=== PATIENT | female | born 1965 | race American Indian/Alaskan Native ===

== ENCOUNTER 2019-10-17 12:30 | Inpatient (IN) | payer MEDICAID ==
[~2019-10-17] VITALS: Ht 165.1 cm; Wt 88.0 kg
[~2019-10-17 12:30] MED LIST: ACET-2247 PO; AUD NEB; BISA10SU11 PR; CHOL100018 PO; DOCU-275 PO; HEPA500018 SQ; LEVE500T53 PO; MOM30 PO; MULT-68 PO; OXYB5 PO; PHEN50 PO; TOPI100T37 PO; [UNRECOGNIZED DRUG - CODE] PO
[2019-10-17] MEDS ORDERED: HALOPERIDOL 5 MG TABLET PO PRN (13:30)
[2019-10-17 16:43] VITALS: BP 113/74
[2019-10-17] MEDS: LevETIRAcetam 500 MG TABLET PO SCH (17:24)
[2019-10-17] MEDS: TOPIRAMATE 100 MG TABLET PO SCH (17:24)
[2019-10-18] MEDS: LevETIRAcetam 500 MG TABLET PO SCH ×2 (09:11→16:42)
[2019-10-18] MEDS: TOPIRAMATE 100 MG TABLET PO SCH ×2 (09:11→16:41)
[2019-10-18] MEDS: CHOLECALCIFEROL (VIT D3) 1,000 UNITS TABLET PO SCH (09:11)
[2019-10-18] MEDS: MULTIVITAMINS, THERAPEUTIC TABLET PO SCH (09:11)
[2019-10-18 09:44] VITALS: BP 102/62
[2019-10-18] MEDS: ESCITALOPRAM OXALATE 10 MG TABLET PO SCH (10:46)
[2019-10-18] MEDS ORDERED: ONDANSETRON HCL 4 MG TABLET PO PRN (12:45)
[2019-10-18] MEDS ORDERED: PETROLATUM,WHITE 28 GM JELLY TP PRN (12:45)
[2019-10-18] MEDS ORDERED: LOPERAMIDE HCL 2 MG CAPSULE PO PRN (12:45)
[2019-10-18] MEDS ORDERED: DOCUSATE SODIUM 100 MG CAPSULE PO PRN (12:45)
[2019-10-18] MEDS ORDERED: GuaiFENesin/D-METHORPHAN [SUGAR-FREE] 200-20MG/10 ML SYRUP UDCUP PO PRN (12:45)
[2019-10-18] MEDS ORDERED: MAG HYDROX/AL HYDROX/SIMETH ES 30 ML SUSPENSION UDCUP PO PRN (12:45)
[2019-10-18] MEDS ORDERED: NICOTINE 14 MG/24 HOUR PATCH TD PRN (12:45)
[2019-10-18] MEDS ORDERED: MAGNESIUM HYDROXIDE SUSPENSION 30 ML UDCUP PO PRN (12:45)
[2019-10-18] MEDS ORDERED: CloNIDine HCL 0.1 MG TABLET PO PRN (12:45)
[2019-10-18] MEDS ORDERED: ACETAMINOPHEN 325 MG TABLET PO PRN (12:45)
[2019-10-18] MEDS ORDERED: ALBUTEROL SULFATE HFA 90 MCG/PUFF 8 GM INHALER IH PRN (12:45)
[2019-10-19] MEDS: CHOLECALCIFEROL (VIT D3) 1,000 UNITS TABLET PO SCH ×2 (09:00→10:10)
[2019-10-19] MEDS: ESCITALOPRAM OXALATE 10 MG TABLET PO SCH ×2 (09:00→10:11)
[2019-10-19] MEDS: MULTIVITAMINS, THERAPEUTIC TABLET PO SCH ×2 (09:00→10:10)
[2019-10-19] MEDS: TOPIRAMATE 100 MG TABLET PO SCH ×3 (09:00→17:20)
[2019-10-19] MEDS: LevETIRAcetam 500 MG TABLET PO SCH ×2 (10:15→17:20)
[2019-10-19] MEDS: LEVOFLOXACIN 500 MG TABLET PO SCH ×2 (17:45→20:20)
[2019-10-19 19:57] VITALS: BP 161/92
[2019-10-19 20:31] VITALS: BP 161/92
[2019-10-19] MEDS ORDERED: RisperiDONE 1 MG TABLET PO SCH (21:00)
[2019-10-19 23:13] VITALS: BP 120/78
[2019-10-19] MEDS: IBUPROFEN 400 MG TABLET PO PRN (23:17)
[2019-10-20 08:07] VITALS: BP 118/75
[2019-10-20] MEDS: ESCITALOPRAM OXALATE 10 MG TABLET PO SCH (09:52)
[2019-10-20] MEDS: MULTIVITAMINS, THERAPEUTIC TABLET PO SCH (09:52)
[2019-10-20] MEDS: TOPIRAMATE 100 MG TABLET PO SCH ×2 (09:52→16:50)
[2019-10-20] MEDS: CHOLECALCIFEROL (VIT D3) 1,000 UNITS TABLET PO SCH (09:52)
[2019-10-20] MEDS: LEVOFLOXACIN 500 MG TABLET PO SCH (09:52)
[2019-10-20] MEDS: LevETIRAcetam 500 MG TABLET PO SCH ×2 (09:53→16:51)
[2019-10-20] MEDS: IBUPROFEN 400 MG TABLET PO PRN (09:57)
[2019-10-20] MEDS ORDERED: LORazepam 2 MG/ML VIAL IM PRN (11:00)
[2019-10-20] MEDS: RisperiDONE 1 MG TABLET PO SCH ×2 (13:15→20:00)
[2019-10-20 16:11] VITALS: BP 109/79
[2019-10-21 01:09] VITALS: BP 135/81
[2019-10-21] MEDS: CHOLECALCIFEROL (VIT D3) 1,000 UNITS TABLET PO SCH (08:42)
[2019-10-21] MEDS: MULTIVITAMINS, THERAPEUTIC TABLET PO SCH (08:42)
[2019-10-21] MEDS: LevETIRAcetam 500 MG TABLET PO SCH ×2 (08:42→16:42)
[2019-10-21] MEDS: TOPIRAMATE 100 MG TABLET PO SCH ×2 (08:42→16:43)
[2019-10-21] MEDS: RisperiDONE 1 MG TABLET PO SCH ×2 (08:42→20:31)
[2019-10-21] MEDS: ESCITALOPRAM OXALATE 10 MG TABLET PO SCH (08:43)
[2019-10-21] MEDS: LEVOFLOXACIN 500 MG TABLET PO SCH (08:43)
[2019-10-21 10:22] VITALS: BP 142/74
[2019-10-21 17:11] VITALS: BP 127/77
[2019-10-22] MEDS: ZOLPIDEM TARTRATE 10 MG TABLET PO PRN (00:17)
[2019-10-22] MEDS: LORazepam 2 MG TABLET PO PRN (00:17)
[2019-10-22 08:19] VITALS: BP 112/75
[2019-10-22] MEDS: CHOLECALCIFEROL (VIT D3) 1,000 UNITS TABLET PO SCH (08:33)
[2019-10-22] MEDS: LEVOFLOXACIN 500 MG TABLET PO SCH (08:33)
[2019-10-22] MEDS: RisperiDONE 1 MG TABLET PO SCH ×2 (08:34→20:33)
[2019-10-22] MEDS: PHENYTOIN SODIUM 100 MG ER CAPSULE PO SCH ×2 (08:34→17:37)
[2019-10-22] MEDS: LevETIRAcetam 500 MG TABLET PO SCH ×2 (08:34→17:37)
[2019-10-22] MEDS: ESCITALOPRAM OXALATE 10 MG TABLET PO SCH (08:34)
[2019-10-22] MEDS: MULTIVITAMINS, THERAPEUTIC TABLET PO SCH (08:35)
[2019-10-22] MEDS: TOPIRAMATE 100 MG TABLET PO SCH ×2 (08:35→17:37)
[2019-10-22 16:03] VITALS: BP 119/78
[2019-10-23] MEDS: ZOLPIDEM TARTRATE 10 MG TABLET PO PRN (00:07)
[2019-10-23] MEDS: LORazepam 2 MG TABLET PO PRN (00:07)
[2019-10-23 00:11] VITALS: BP 130/89
[2019-10-23] MEDS: LevETIRAcetam 500 MG TABLET PO SCH ×2 (08:09→16:14)
[2019-10-23] MEDS: CHOLECALCIFEROL (VIT D3) 1,000 UNITS TABLET PO SCH (08:10)
[2019-10-23] MEDS: PHENYTOIN SODIUM 100 MG ER CAPSULE PO SCH ×2 (08:10→16:14)
[2019-10-23] MEDS: MULTIVITAMINS, THERAPEUTIC TABLET PO SCH (08:10)
[2019-10-23] MEDS: ESCITALOPRAM OXALATE 10 MG TABLET PO SCH (08:11)
[2019-10-23] MEDS: TOPIRAMATE 100 MG TABLET PO SCH ×2 (08:12→16:14)
[2019-10-23] MEDS: RisperiDONE 1 MG TABLET PO SCH ×2 (08:12→20:10)
[2019-10-23] MEDS: LEVOFLOXACIN 500 MG TABLET PO SCH (08:13)
[2019-10-23 08:14] VITALS: BP 105/68
[2019-10-23 16:30] VITALS: BP 103/53
[2019-10-24] MEDS: LORazepam 2 MG TABLET PO PRN ×2 (00:35→23:41)
[2019-10-24] MEDS: ZOLPIDEM TARTRATE 10 MG TABLET PO PRN ×2 (00:35→23:41)
[2019-10-24 04:29] VITALS: BP 109/77
[2019-10-24] MEDS: LevETIRAcetam 500 MG TABLET PO SCH ×2 (08:45→16:59)
[2019-10-24] MEDS: MULTIVITAMINS, THERAPEUTIC TABLET PO SCH (08:45)
[2019-10-24] MEDS: CHOLECALCIFEROL (VIT D3) 1,000 UNITS TABLET PO SCH (08:45)
[2019-10-24] MEDS: PHENYTOIN SODIUM 100 MG ER CAPSULE PO SCH ×2 (08:45→17:00)
[2019-10-24] MEDS: TOPIRAMATE 100 MG TABLET PO SCH ×2 (08:46→17:00)
[2019-10-24] MEDS: LEVOFLOXACIN 500 MG TABLET PO SCH (08:46)
[2019-10-24] MEDS: ESCITALOPRAM OXALATE 10 MG TABLET PO SCH (08:46)
[2019-10-24] MEDS: RisperiDONE 1 MG TABLET PO SCH ×2 (08:46→21:07)
[2019-10-24 09:32] VITALS: BP 114/75
[2019-10-24 16:12] VITALS: BP 119/77
[2019-10-25 00:06] VITALS: BP 115/79
[2019-10-25] MEDS: PHENYTOIN SODIUM 100 MG ER CAPSULE PO SCH ×2 (09:21→16:29)
[2019-10-25] MEDS: LevETIRAcetam 500 MG TABLET PO SCH ×2 (09:21→16:30)
[2019-10-25] MEDS: TOPIRAMATE 100 MG TABLET PO SCH ×2 (09:22→16:31)
[2019-10-25] MEDS: MULTIVITAMINS, THERAPEUTIC TABLET PO SCH (09:22)
[2019-10-25] MEDS: RisperiDONE 1 MG TABLET PO SCH ×2 (09:22→20:25)
[2019-10-25] MEDS: ESCITALOPRAM OXALATE 10 MG TABLET PO SCH (09:22)
[2019-10-25] MEDS: CHOLECALCIFEROL (VIT D3) 1,000 UNITS TABLET PO SCH (09:22)
[2019-10-25 09:33] VITALS: BP 111/55
[2019-10-25] MEDS: LORazepam 2 MG TABLET PO PRN (23:31)
[2019-10-25] MEDS: ZOLPIDEM TARTRATE 10 MG TABLET PO PRN (23:31)
[2019-10-26 08:35] VITALS: BP 110/64
[2019-10-26] MEDS: ESCITALOPRAM OXALATE 10 MG TABLET PO SCH (09:33)
[2019-10-26] MEDS: RisperiDONE 1 MG TABLET PO SCH ×2 (09:34→20:48)
[2019-10-26] MEDS: CHOLECALCIFEROL (VIT D3) 1,000 UNITS TABLET PO SCH (09:34)
[2019-10-26] MEDS: LevETIRAcetam 500 MG TABLET PO SCH ×2 (09:34→16:39)
[2019-10-26] MEDS: PHENYTOIN SODIUM 100 MG ER CAPSULE PO SCH ×2 (09:35→16:39)
[2019-10-26] MEDS: MULTIVITAMINS, THERAPEUTIC TABLET PO SCH (09:35)
[2019-10-26] MEDS: TOPIRAMATE 100 MG TABLET PO SCH ×2 (09:35→16:39)
[2019-10-26 16:16] VITALS: BP 105/67
[2019-10-26] MEDS: ZOLPIDEM TARTRATE 10 MG TABLET PO PRN (20:48)
[2019-10-27] MEDS: PHENYTOIN SODIUM 100 MG ER CAPSULE PO SCH ×2 (09:00→17:12)
[2019-10-27] MEDS: RisperiDONE 1 MG TABLET PO SCH ×2 (09:00→21:00)
[2019-10-27] MEDS: ESCITALOPRAM OXALATE 10 MG TABLET PO SCH (09:00)
[2019-10-27] MEDS: MULTIVITAMINS, THERAPEUTIC TABLET PO SCH (09:01)
[2019-10-27] MEDS: TOPIRAMATE 100 MG TABLET PO SCH ×2 (09:01→17:12)
[2019-10-27] MEDS: LevETIRAcetam 500 MG TABLET PO SCH ×2 (09:01→17:12)
[2019-10-27] MEDS: CHOLECALCIFEROL (VIT D3) 1,000 UNITS TABLET PO SCH (09:01)
[2019-10-27 10:17] VITALS: BP 96/58
[2019-10-27 16:01] VITALS: BP 100/70
[2019-10-27] MEDS: ZOLPIDEM TARTRATE 10 MG TABLET PO PRN (21:00)
[2019-10-28 08:35] VITALS: BP 112/69
[2019-10-28] MEDS: CHOLECALCIFEROL (VIT D3) 1,000 UNITS TABLET PO SCH (09:34)
[2019-10-28] MEDS: ESCITALOPRAM OXALATE 10 MG TABLET PO SCH (09:34)
[2019-10-28] MEDS: LevETIRAcetam 500 MG TABLET PO SCH ×2 (09:34→16:28)
[2019-10-28] MEDS: RisperiDONE 1 MG TABLET PO SCH ×2 (09:34→20:49)
[2019-10-28] MEDS: PHENYTOIN SODIUM 100 MG ER CAPSULE PO SCH ×2 (09:34→16:28)
[2019-10-28] MEDS: MULTIVITAMINS, THERAPEUTIC TABLET PO SCH (09:34)
[2019-10-28] MEDS: TOPIRAMATE 100 MG TABLET PO SCH ×2 (09:34→16:28)
[2019-10-28 16:02] VITALS: BP 116/80
[2019-10-28] MEDS: LORazepam 2 MG TABLET PO PRN (23:37)
[2019-10-28] MEDS: ZOLPIDEM TARTRATE 10 MG TABLET PO PRN (23:37)
[2019-10-29 00:02] VITALS: BP 114/78
[2019-10-29 08:16] VITALS: BP 103/71
[2019-10-29] MEDS: MULTIVITAMINS, THERAPEUTIC TABLET PO SCH (09:42)
[2019-10-29] MEDS: RisperiDONE 1 MG TABLET PO SCH ×2 (09:42→20:36)
[2019-10-29] MEDS: ESCITALOPRAM OXALATE 10 MG TABLET PO SCH (09:42)
[2019-10-29] MEDS: CHOLECALCIFEROL (VIT D3) 1,000 UNITS TABLET PO SCH (09:42)
[2019-10-29] MEDS: LevETIRAcetam 500 MG TABLET PO SCH ×2 (09:43→16:29)
[2019-10-29] MEDS: TOPIRAMATE 100 MG TABLET PO SCH ×2 (09:44→16:29)
[2019-10-29] MEDS: PHENYTOIN SODIUM 100 MG ER CAPSULE PO SCH ×2 (09:44→16:29)
[2019-10-29 16:10] VITALS: BP 106/72
[2019-10-29] MEDS: ZOLPIDEM TARTRATE 10 MG TABLET PO PRN (20:36)
[2019-10-30 08:30] VITALS: BP 122/75
[2019-10-30] MEDS: TOPIRAMATE 100 MG TABLET PO SCH ×2 (09:11→17:17)
[2019-10-30] MEDS: LevETIRAcetam 500 MG TABLET PO SCH ×2 (09:11→17:18)
[2019-10-30] MEDS: CHOLECALCIFEROL (VIT D3) 1,000 UNITS TABLET PO SCH (09:11)
[2019-10-30] MEDS: MULTIVITAMINS, THERAPEUTIC TABLET PO SCH (09:12)
[2019-10-30] MEDS: ESCITALOPRAM OXALATE 10 MG TABLET PO SCH (09:12)
[2019-10-30] MEDS: RisperiDONE 1 MG TABLET PO SCH ×2 (09:12→21:02)
[2019-10-30] MEDS: PHENYTOIN SODIUM 100 MG ER CAPSULE PO SCH ×2 (09:12→17:16)
[2019-10-30 16:49] VITALS: BP 118/80
[2019-10-30] MEDS: ZOLPIDEM TARTRATE 10 MG TABLET PO PRN (21:03)
[2019-10-31 08:17] VITALS: BP 98/71
[2019-10-31] MEDS: CHOLECALCIFEROL (VIT D3) 1,000 UNITS TABLET PO SCH (08:34)
[2019-10-31] MEDS: ESCITALOPRAM OXALATE 10 MG TABLET PO SCH (08:34)
[2019-10-31] MEDS: LevETIRAcetam 500 MG TABLET PO SCH ×2 (08:34→16:27)
[2019-10-31] MEDS: TOPIRAMATE 100 MG TABLET PO SCH ×2 (08:35→16:27)
[2019-10-31] MEDS: RisperiDONE 1 MG TABLET PO SCH ×2 (08:35→20:06)
[2019-10-31] MEDS: PHENYTOIN SODIUM 100 MG ER CAPSULE PO SCH ×2 (08:35→16:27)
[2019-10-31] MEDS: MULTIVITAMINS, THERAPEUTIC TABLET PO SCH (08:40)
[2019-10-31 18:35] VITALS: BP 97/70
[2019-11-01] MEDS: PHENYTOIN SODIUM 100 MG ER CAPSULE PO SCH ×2 (09:05→16:47)
[2019-11-01] MEDS: LevETIRAcetam 500 MG TABLET PO SCH ×2 (09:05→16:47)
[2019-11-01] MEDS: RisperiDONE 1 MG TABLET PO SCH (09:06)
[2019-11-01] MEDS: MULTIVITAMINS, THERAPEUTIC TABLET PO SCH (09:06)
[2019-11-01] MEDS: TOPIRAMATE 100 MG TABLET PO SCH ×2 (09:06→16:47)
[2019-11-01] MEDS: ESCITALOPRAM OXALATE 10 MG TABLET PO SCH (09:06)
[2019-11-01] MEDS: CHOLECALCIFEROL (VIT D3) 1,000 UNITS TABLET PO SCH (09:06)
[2019-11-01] MEDS ORDERED: RISP1 PO (10:06)
[2019-11-01] MEDS ORDERED: ESCI10TA PO (10:07)
[2019-11-01] MEDS ORDERED: CHOL200016 PO (10:10)
[2019-11-01] MEDS ORDERED: LEVE250T55 PO (10:11)
[2019-11-01] MEDS ORDERED: MULT-1239 PO (10:12)
[2019-11-01] MEDS ORDERED: PHEN100C23 PO (10:13)
[2019-11-01] MEDS ORDERED: TOPI100T37 PO (10:13)
[2019-11-01 11:29] VITALS: BP 98/70
== END 2019-11-01 17:45 | disposition home or self-care (01) | DRG 885 ==
LOC: 3EC 12:30 → 3EI 10-24 12:54
DX: F33.2 Major depressive disorder, recurrent severe without psychotic features (principal); G92 Toxic encephalopathy; R45.851 Suicidal ideations; G40.909 Epilepsy, unspecified, not intractable, without status epilepticus; D64.9 Anemia, unspecified; R32 Unspecified urinary incontinence; E55.9 Vitamin D deficiency, unspecified; F19.10 Other psychoactive substance abuse, uncomplicated; Z59.0 Homelessness; Z88.0 Allergy status to penicillin
CPT/HCPCS: 70450; 87081; J2060

== ENCOUNTER 2020-05-02 10:28 | Emergency (ER) | payer MEDICAID, OTHER ==
[~2020-05-02] VITALS: Ht 165.1 cm; Wt 76.8 kg
[~2020-05-02 10:28] MED LIST changes: -ACET-2247 PO; -AUD NEB; -BISA10SU11 PR; -CHOL100018 PO; +CHOL200016 PO; -DOCU-275 PO; +ESCI-8 PO; -HEPA500018 SQ; +LEVE250T55 PO; -LEVE500T53 PO; +MULT-1239 PO; -MULT-68 PO; -OXYB5 PO; +PHEN100C23 PO; -PHEN50 PO; +RISP1TAB27 PO; -[UNRECOGNIZED DRUG - CODE] PO
[2020-05-02] MEDS ORDERED: SODIUM CHLORIDE 0.9% 1,000 ML IV ONE (11:15)
[2020-05-02] MEDS ORDERED: LORazepam 1 MG TABLET PO ONE (11:15)
[2020-05-02 11:53] LABS: BASOPHILS % (AUTO) 1.1 % (0.0-2.0); EOSINOPHILS % (AUTO) 0.5 % (1.0-6.0); HEMATOCRIT 39.9 % (36-46); HEMOGLOBIN 14.1 g/dL (12.0-16.0); LYMPHOCYTES # (AUTO) 1.2 K/uL (1.0-4.8); LYMPHOCYTES % (AUTO) 21.7 % (22.0-44.0); MEAN CORPUSCULAR HEMOGLOBIN 33.4 pg (26.0-34.0); MEAN CORPUSCULAR HGB CONC 35.3 G/dL (31.0-37.0); MEAN CORPUSCULAR VOLUME 94 fL (80-100); MONOCYTES # (AUTO) 0.5 K/uL (0.1-1.0); MONOCYTES % (AUTO) 8.5 % (2.0-9.0); NEUTROPHILS # (AUTO) 3.8 K/uL (1.8-7.7); NEUTROPHILS % (AUTO) 68.2 % (40.0-70.0); PLATELET COUNT (AUTO) 183 K/uL (150-450); RED BLOOD CELL COUNT(AUTO) 4.23 MIL/uL (4.00-5.20); RED CELL DISTRIBUTION WIDTH 13.1 % (11.5-14.5)
[2020-05-02 12:13] LABS: ALANINE AMINOTRANSFERASE 28 U/L (12-78); ALBUMIN 3.3 g/dL (3.4-5.0); ALKALINE PHOSPHATASE 143 U/L (46-116); ANION GAP 9 mmol/L (8-16); ASPARTATE AMINOTRANSFERASE 25 U/L (15-37); BILIRUBIN,TOTAL 0.3 mg/dL (0.1-1.0); CALCIUM, TOTAL 8.7 mg/dL (8.8-10.5); CARBON DIOXIDE 27 mmol/L (22-29); CHLORIDE 108 mmol/L (98-107); CREATININE 0.62 mg/dL (0.60-1.30); GLOMERULAR FILTR. RATE CALC > 60 mL/min (>60); GLUCOSE,RANDOM 116 mg/dL (70-110); SODIUM SERUM 144 mmol/L (136-145); TOTAL PROTEIN, SERUM 7.5 g/dL (6.4-8.2); UREA NITROGEN, BLOOD 11 mg/dL (7-18)
[2020-05-02 12:20] LABS: PHENYTOIN (DILANTIN) < 0.5 mcg/mL (10.0-20.0); POTASSIUM 2.9 mmol/L (3.5-5.1); VALPROIC ACID < 3 mcg/mL (50-100)
[2020-05-02] MEDS ORDERED: POTASSIUM CHLORIDE 20 MEQ ER TABLET PO ONE (12:45)
[2020-05-02] MEDS ORDERED: PHENYTOIN SODIUM 1,000 MG in SODIUM CHLORIDE 0.9% 150 ML IV ONE (12:45)
[2020-05-02 13:17] LABS: AMPHET/METH SCREEN,URINE NEGATIVE (NEGATIVE); BARBITURATE SCREEN, URINE NEGATIVE (NEGATIVE); BENZODIAZEPINES SCREEN,URINE NEGATIVE (NEGATIVE); CANNABINOID SCREEN,URINE NEGATIVE (NEGATIVE); COCAINE SCREEN,URINE NEGATIVE (NEGATIVE); METHADONE SCREEN, URINE NEGATIVE (NEGATIVE); OPIATE SCREEN,URINE NEGATIVE (NEGATIVE)
[2020-05-02 13:19] LABS: PHENCYCLIDINE SCREEN,URINE NEGATIVE (NEGATIVE)
[2020-05-02 14:00] VITALS: BP 152/71
== END 2020-05-02 15:01 | disposition home or self-care (01) ==
LOC: EMS 10:29
DX: G40.909 Epilepsy, unspecified, not intractable, without status epilepticus (principal); F41.9 Anxiety disorder, unspecified; F32.9 Major depressive disorder, single episode, unspecified; F12.90 Cannabis use, unspecified, uncomplicated; Z88.0 Allergy status to penicillin
CPT/HCPCS: 36415; 80053; 80164; 80185; 80307; 83735; 85025; 96365; 99285; G0480; J1165; J7030; J7050

== ENCOUNTER 2021-01-17 10:02 | Emergency (ER) | payer OTHER ==
[~2021-01-17] VITALS: Ht 165.1 cm; Wt 75.0 kg
[~2021-01-17 10:02] MED LIST changes: -RISP1TAB27 PO; +RISP1TAB48 PO
[2021-01-17 10:10] VITALS: BP 115/73
[2021-01-17] MEDS ORDERED: LevETIRAcetam 500 MG TABLET PO ONE (11:00)
[2021-01-17] MEDS ORDERED: PHENYTOIN SODIUM 100 MG ER CAPSULE PO ONE (11:00)
== END 2021-01-17 11:54 | disposition home or self-care (01) ==
LOC: EMS 10:02
DX: F41.9 Anxiety disorder, unspecified (principal); F32.9 Major depressive disorder, single episode, unspecified; F12.90 Cannabis use, unspecified, uncomplicated; Z86.69 Personal history of other diseases of the nervous system and sense organs; Z88.0 Allergy status to penicillin
CPT/HCPCS: 99283

== ENCOUNTER 2021-12-19 10:31 | Emergency (ER) | payer OTHER ==
[~2021-12-19] VITALS: Ht 165.1 cm; Wt 98.6 kg
[~2021-12-19 10:31] MED LIST changes: +LEVE250T4 PO; -LEVE250T55 PO
[2021-12-19] MEDS ORDERED: LevETIRAcetam 1,000 MG in DEXTROSE 5%-WATER 100 ML IV ONE (10:45)
[2021-12-19 11:06] LABS: BASOPHILS % (AUTO) 0.8 % (0.0-2.0); EOSINOPHILS % (AUTO) 0.2 % (1.0-6.0); HEMATOCRIT 43.4 % (36-46); LYMPHOCYTES # (AUTO) 0.7 K/uL (1.0-4.8); LYMPHOCYTES % (AUTO) 10.6 % (22.0-44.0); MEAN CORPUSCULAR HEMOGLOBIN 31.7 pg (26.0-34.0); MEAN CORPUSCULAR HGB CONC 34.6 G/dL (31.0-37.0); MEAN CORPUSCULAR VOLUME 92 fL (80-100); MONOCYTES # (AUTO) 0.3 K/uL (0.1-1.0); MONOCYTES % (AUTO) 4.9 % (2.0-9.0); NEUTROPHILS # (AUTO) 5.4 K/uL (1.8-7.7); NEUTROPHILS % (AUTO) 83.5 % (40.0-70.0); PLATELET COUNT (AUTO) 185 K/uL (150-450); RED BLOOD CELL COUNT(AUTO) 4.73 MIL/uL (4.00-5.20); RED CELL DISTRIBUTION WIDTH 13.4 % (11.5-14.5)
[2021-12-19 11:19] LABS: ANION GAP 10 mmol/L (8-16); CALCIUM, TOTAL 8.8 mg/dL (8.8-10.5); CARBON DIOXIDE 27 mmol/L (22-29); CHLORIDE 104 mmol/L (98-107); CREATININE 0.53 mg/dL (0.60-1.30); GLUCOSE,RANDOM 107 mg/dL (70-110); POTASSIUM 3.5 mmol/L (3.5-5.1); SODIUM SERUM 141 mmol/L (136-145); UREA NITROGEN, BLOOD 10 mg/dL (7-18)
[2021-12-19 11:20] LABS: GLOMERULAR FILTR. RATE CALC > 60 mL/min (>60)
[2021-12-19 11:34] LABS: B-TYPE NATRIURETIC PEPTIDE 10 pg/mL (0-100)
[2021-12-19 11:37] LABS: ALANINE AMINOTRANSFERASE 17 U/L (12-78); ALBUMIN 3.5 g/dL (3.4-5.0); ALKALINE PHOSPHATASE 161 U/L (46-116); ASPARTATE AMINOTRANSFERASE 18 U/L (15-37); BILIRUBIN,TOTAL 0.3 mg/dL (0.1-1.0); PHENYTOIN (DILANTIN) 0.8 mcg/mL (10.0-20.0); TOTAL PROTEIN, SERUM 8.1 g/dL (6.4-8.2)
[2021-12-19 11:53] VITALS: BP 140/75
[2021-12-19] MEDS ORDERED: LEVE500T20 PO (12:15)
[2021-12-19] MEDS ORDERED: PHEN100C23 PO (12:32)
== END 2021-12-19 12:33 | disposition home or self-care (01) ==
LOC: EMS 10:36
DX: R56.9 Unspecified convulsions (principal); F41.9 Anxiety disorder, unspecified; F32.A Depression, unspecified; F12.90 Cannabis use, unspecified, uncomplicated; Z86.69 Personal history of other diseases of the nervous system and sense organs; Z98.890 Other specified postprocedural states
CPT/HCPCS: 36415; 70450; 80053; 80185; 83880; 84484; 85025; 93005; 96365; 99285; G0482; J0712; J7060; 99284

== ENCOUNTER 2022-06-15 04:46 | Emergency (ER) | payer OTHER ==
[~2022-06-15] VITALS: Ht 165.1 cm; Wt 88.6 kg
[~2022-06-15 04:46] MED LIST changes: +LEVE500T20 PO; +MAGN-169 PO; -MOM30 PO
[2022-06-15 06:30] VITALS: BP 130/70
== END 2022-06-15 06:30 | disposition home or self-care (01) ==
LOC: EMS 04:47
DX: F41.9 Anxiety disorder, unspecified (principal); G40.909 Epilepsy, unspecified, not intractable, without status epilepticus; F32.9 Major depressive disorder, single episode, unspecified; F12.90 Cannabis use, unspecified, uncomplicated; Z59.00 Homelessness unspecified; Z98.890 Other specified postprocedural states; Z88.0 Allergy status to penicillin
CPT/HCPCS: 99283; Z7502

== ENCOUNTER 2022-09-15 21:57 | Emergency (ER) | payer OTHER ==
[~2022-09-15] VITALS: Ht 165.1 cm; Wt 75.0 kg
[2022-09-15] MEDS ORDERED: LevETIRAcetam 1,000 MG in DEXTROSE 5%-WATER 100 ML IV ONE (22:45)
[2022-09-15] MEDS ORDERED: SODIUM CHLORIDE 0.9% 1,000 ML IV ONE (22:45)
[2022-09-15] MEDS ORDERED: PHENYTOIN SODIUM 1,000 MG in SODIUM CHLORIDE 0.9% 150 ML IV ONE (23:00)
[2022-09-16] MEDS ORDERED: PHENYTOIN SODIUM 100 MG ER CAPSULE PO ONE (00:15)
[2022-09-16 01:16] LABS: BASOPHILS % (AUTO) 0.7 % (0.0-2.0); EOSINOPHILS % (AUTO) 0.2 % (1.0-6.0); HEMATOCRIT 42.3 % (36-46); HEMOGLOBIN 14.5 g/dL (12.0-16.0); LYMPHOCYTES # (AUTO) 1.8 K/uL (1.0-4.8); LYMPHOCYTES % (AUTO) 19.1 % (22.0-44.0); MEAN CORPUSCULAR HEMOGLOBIN 32.1 pg (26.0-34.0); MEAN CORPUSCULAR HGB CONC 34.2 G/dL (31.0-37.0); MEAN CORPUSCULAR VOLUME 94 fL (80-100); MONOCYTES # (AUTO) 0.5 K/uL (0.1-1.0); MONOCYTES % (AUTO) 5.6 % (2.0-9.0); NEUTROPHILS % (AUTO) 74.4 % (40.0-70.0); PLATELET COUNT (AUTO) 177 K/uL (150-450); RED BLOOD CELL COUNT(AUTO) 4.51 MIL/uL (4.00-5.20); RED CELL DISTRIBUTION WIDTH 13.7 % (11.5-14.5)
[2022-09-16 01:35] LABS: ANION GAP 8 mmol/L (8-16); CALCIUM, TOTAL 8.7 mg/dL (8.8-10.5); CARBON DIOXIDE 26 mmol/L (22-29); CHLORIDE 101 mmol/L (98-107); CREATININE 0.66 mg/dL (0.60-1.30); GLUCOSE,RANDOM 98 mg/dL (70-110); POTASSIUM 3.2 mmol/L (3.5-5.1); SODIUM SERUM 135 mmol/L (136-145); UREA NITROGEN, BLOOD 14 mg/dL (7-18)
[2022-09-16 01:40] LABS: GLOMERULAR FILTR. RATE CALC > 60 mL/min (>60)
[2022-09-16 01:45] VITALS: BP 112/73
[2022-09-16 01:47] LABS: ALANINE AMINOTRANSFERASE 13 U/L (12-78); ALBUMIN 3.5 g/dL (3.4-5.0); ALKALINE PHOSPHATASE 184 U/L (46-116); ASPARTATE AMINOTRANSFERASE 17 U/L (15-37); BILIRUBIN,TOTAL 0.3 mg/dL (0.1-1.0); PHENYTOIN (DILANTIN) 23.7 mcg/mL (10.0-20.0); TOTAL PROTEIN, SERUM 7.7 g/dL (6.4-8.2)
== END 2022-09-16 04:27 | disposition home or self-care (01) ==
LOC: EMS 22:06
DX: G40.909 Epilepsy, unspecified, not intractable, without status epilepticus (principal); F41.9 Anxiety disorder, unspecified; F32.A Depression, unspecified; F12.90 Cannabis use, unspecified, uncomplicated; Z88.0 Allergy status to penicillin
CPT/HCPCS: 99284; 80053; 80185; 85025; 36415; 70450; G0480; J0712; J1165; J7050; J7060

== ENCOUNTER 2023-07-19 19:46 | Emergency (ER) | payer OTHER ==
[~2023-07-19] VITALS: Ht 157.5 cm; Wt 82.0 kg
[2023-07-19 20:07] VITALS: TEMP 98.6
[2023-07-19 22:07] LABS: BASOPHILS % (AUTO) 0.5 % (0.0-2.0); EOSINOPHILS % (AUTO) 1.4 % (1.0-6.0); HEMATOCRIT 42.8 % (36-46); HEMOGLOBIN 14.7 g/dL (12.0-16.0); LYMPHOCYTES # (AUTO) 1.3 K/uL (1.0-4.8); LYMPHOCYTES % (AUTO) 15.4 % (22.0-44.0); MEAN CORPUSCULAR HEMOGLOBIN 32.3 pg (26.0-34.0); MEAN CORPUSCULAR HGB CONC 34.3 G/dL (31.0-37.0); MEAN CORPUSCULAR VOLUME 94 fL (80-100); MONOCYTES # (AUTO) 0.5 K/uL (0.1-1.0); MONOCYTES % (AUTO) 6.7 % (2.0-9.0); NEUTROPHILS # (AUTO) 6.2 K/uL (1.8-7.7); PLATELET COUNT (AUTO) 171 K/uL (150-450); RED BLOOD CELL COUNT(AUTO) 4.54 MIL/uL (4.00-5.20); RED CELL DISTRIBUTION WIDTH 13.5 % (11.5-14.5); WHITE BLOOD COUNT (AUTO) 8.2 K/uL (4.5-11.0)
[2023-07-19 22:15] LABS: ANION GAP 4 mmol/L (8-16); CALCIUM, TOTAL 8.8 mg/dL (8.8-10.5); CARBON DIOXIDE 29 mmol/L (22-29); CHLORIDE 106 mmol/L (98-107); CREATININE 0.73 mg/dL (0.60-1.30); GLOMERULAR FILTR. RATE CALC > 60 mL/min (>60); GLUCOSE,RANDOM 123 mg/dL (70-110); POTASSIUM 3.9 mmol/L (3.5-5.1); SODIUM SERUM 139 mmol/L (136-145); UREA NITROGEN, BLOOD 14 mg/dL (7-18)
[2023-07-19] MEDS ORDERED: LevETIRAcetam 1,000 MG in DEXTROSE 5%-WATER 100 ML IV ONE (22:15)
[2023-07-19 22:26] LABS: ALANINE AMINOTRANSFERASE 20 U/L (12-78); ALBUMIN 3.3 g/dL (3.4-5.0); ALKALINE PHOSPHATASE 173 U/L (46-116); ASPARTATE AMINOTRANSFERASE 16 U/L (15-37); BILIRUBIN,TOTAL 0.1 mg/dL (0.1-1.0); TOTAL PROTEIN, SERUM 7.4 g/dL (6.4-8.2)
[2023-07-19] MEDS ORDERED: LevETIRAcetam 500 MG TABLET PO ONE (22:30)
[2023-07-19 22:50] LABS: TROPONIN I-HIGH SENSITIVITY 14 ng/L (<51)
[2023-07-19 23:15] VITALS: BP 124/83; PULSE 99; RESP 17
== END 2023-07-20 00:35 | disposition home or self-care (01) ==
LOC: EMS 19:48
DX: G40.909 Epilepsy, unspecified, not intractable, without status epilepticus (principal); F41.9 Anxiety disorder, unspecified; F32.A Depression, unspecified; F12.90 Cannabis use, unspecified, uncomplicated; Z88.0 Allergy status to penicillin; Z98.890 Other specified postprocedural states
CPT/HCPCS: 99284; 80053; 80185; 84484; 85025; 36415; 93005; G0480; J0712; J7060